=== PATIENT | male | born 1955 | race Caucasian/White ===

== ENCOUNTER → 2018-06-26 | Outpatient (CLI) | payer MEDICARE, OTHER ==
[2018-06-26 13:25] LABS: HCT 46.7 % (39.0-53.0); MCHC 32.2 g/dL (31.0-37.0); MCV 90.1 fL (80.0-100.0); Mean Platelet Volume 6.6; Platelet Count 326 k/uL (150-450); RBC 5.19 m/uL (4.30-5.90); RDW 14.3 % (11.5-15.5); WBC 9.6 k/uL (3.8-10.6)
[2018-06-26 13:36] LABS: D-Dimer <0.17 mg/L FEU (<0.60); INR 2.5 (<1.2); Prothrombin Time 22.4 sec (9.0-12.0)
[2018-06-26 13:40] LABS: Anion Gap 10 mmol/L; Blood Urea Nitrogen 22 mg/dL (9-20); Calcium 9.3 mg/dL (8.4-10.2); Carbon Dioxide 25 mmol/L (22-30); Chloride 107 mmol/L (98-107); Glucose 107 mg/dL (74-99); Potassium 5.2 mmol/L (3.5-5.1); Sodium 142 mmol/L (137-145)
== END ==
LOC: LABWHC1 12:30
PROVIDERS: ATTEND Radiology Diagnostic Radiology
DX: Z51.81 Encounter for therapeutic drug level monitoring (principal); Z79.01 Long term (current) use of anticoagulants; Z86.718 Personal history of other venous thrombosis and embolism
CPT/HCPCS: 36415; 80048; 85027; 85379; 85610; 86141

== ENCOUNTER → 2021-05-12 | Outpatient (CLI) | payer MEDICARE, OTHER ==
--- NOTE | 2021-05-12 11:22 | XR ---
EXAMINATION TYPE: XR chest 2V DATE OF EXAM: 05/12/2021 COMPARISON: 12/13/2014 TECHNIQUE: PA and lateral views submitted. HISTORY: Cough FINDINGS: No pneumothorax or pleural effusion. Subsegmental changes in the right lower lobe.. Hyperinflation n oted. Hypertrophic and degenerative change of the spine. No overt failure. Biapical pleural thickenin g. Arthropathy of the right shoulder. IMPRESSION: 1. Right basilar atelectasis versus early infiltrate. Correlate clinically.
== END | disposition home or self-care (01) ==
LOC: RADXRYALE 10:22
PROVIDERS: ATTEND Internal Medicine
DX: R05 Cough (principal)
CPT/HCPCS: 71046

== ENCOUNTER 2022-06-17 07:59 | Emergency (ER) | payer MEDICARE, OTHER ==
[2022-06-17 08:04] VITALS: TEMP 98
[2022-06-17] MEDS ORDERED: SODIUM CHLORIDE 0.9% 500 ML 500 ML IV STA (08:31)
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
[2022-06-17 09:49] LABS: Basophils % (A) 0 %; Eosinophils # (A) 0.1 k/uL (0-0.7); Eosinophils % (A) 1 %; HCT 49.5 % (39.0-53.0); HGB 15.9 gm/dL (13.0-17.5); Lymphocytes # (A) 0.2 k/uL (1.0-4.8); Lymphocytes % (A) 2 %; MCHC 32.2 g/dL (31.0-37.0); MCV 93.1 fL (80.0-100.0); Mean Platelet Volume 7.1; Monocytes # (A) 0.7 k/uL (0-1.0); Monocytes % (A) 5 %; Neutrophils # (A) 12.9 k/uL (1.3-7.7); Neutrophils % (A) 92 %; Platelet Count 310 k/uL (150-450); RBC 5.32 m/uL (4.30-5.90); RDW 14.3 % (11.5-15.5)
[2022-06-17 10:00] LABS: Albumin 4.7 g/dL (3.5-5.0); Calcium 9.4 mg/dL (8.4-10.2); Potassium 4.6 mmol/L (3.5-5.1); Total Bilirubin 2.5 mg/dL (0.2-1.3); Total Protein 7.7 g/dL (6.3-8.2)
[2022-06-17 10:48] LABS: Appearance,Urine Clear (Clear); Bilirubin,Urine Negative (Negative); Blood,Urine Negative (Negative); Color,Urine Yellow; Glucose,Urine (UA) 4+ (Negative); Ketones,Urine Negative (Negative); Leukocyte Esterase,Urine Negative (Negative); Nitrite,Urine Negative (Negative); PH, Urine 7.5 (5.0-8.0); Protein,Urine Negative (Negative); Specific Gravity,Urine 1.029 (1.001-1.035)
[2022-06-17 11:07] VITALS: RESP 18
--- NOTE | 2022-06-17 11:36 | US ---
EXAMINATION TYPE: US gallbladder DATE OF EXAM: 06/17/2022 COMPARISON: CT 06/17/2022 CLINICAL HISTORY: pain. TECHNIQUE: Multiple sonographic images of the right upper quadrant are obtained. FINDINGS: EXAM MEASUREMENTS: Liver Length: 16.5 cm Gallbladder Wall: 0.3 cm CBD: 0.4 cm Right Kidney: 11.7 x 5.1 x 5.4 cm VINYL INSTALLER NOTES:Technically difficult study due to body habitus and overlying bowel gas. Pancreas: Obscured by bowel gas Liver: limited visualization to intercostal window, visualized portions wnl increased echogenicity. Gallbladder: No stones seen Evidence for sonographic Castro's sign: No CBD: wnl Right Kidney: No hydronephrosis or masses seen IMPRESSION: 1. No evidence for acute process. 2. Hepatocellular disease commonly relating to hepatic steatosis.
--- NOTE | 2022-06-17 11:36 | CT ---
EXAMINATION TYPE: CT abdomen pelvis w con CT DLP: 2210.2 mGycm, Automated exposure control for dose reduction was used. DATE OF EXAM: 06/17/2022 10:50 AM COMPARISON: None CLINICAL INDICATION:Male, 66 years old with history of abdominal pain TECHNIQUE: Axial CT of the abdomen and pelvis. Sagittal and coronal reformats were created on a [employer] workstation. Contrast used:100 ml mL of Isovue 300 with IV Contrast, Oral contrast used: without Oral Contrast FINDINGS: LOWER CHEST: Unremarkable ABDOMEN LIVER: Unremarkable GALLBLADDER AND BILE DUCTS: Unremarkable. PANCREAS: Unremarkable. SPLEEN: Small splenule is present. ADRENAL GLANDS: Unremarkable. KIDNEYS AND URETERS: No evidence of hydronephrosis or renal calculus. The ureters are unremarkable. PELVIS BLADDER: Nondistended and incompletely evaluated. REPRODUCTIVE: Unremarkable. ABDOMEN & PELVIS STOMACH AND BOWEL: Second portion duodenal diverticulum. No evidence of bowel obstruction. PERITONEUM: No evidence of pneumoperitoneum or free fluid. VASCULATURE: No evidence of aortic aneurysm. Left common iliac vein stent. MUSCULOSKELETAL: No acute osseous abnormalities, multilevel disc degeneration changes throughout the spine. LYMPH NODES: No gross evidence for lymphadenopathy. SOFT TISSUE/ABDOMINAL WALL: Fat-containing umbilical hernia. Left fat filled inguinal hernia. IMPRESSION: No evidence for acute intra-abdominal process to explain the patient's pain.
[2022-06-17 13:42] VITALS: BP 118/72; PULSE 110
[2022-06-17 17:17] LABS: Hepatitis A Antibody IgM Nonreactive (Nonreactive); Hepatitis B Core IgM Nonreactive (Nonreactive); Hepatitis B Surface Antigen Nonreactive (Nonreactive); Hepatitis C IgG Antibody Nonreactive (Nonreactive)
== END 2022-06-17 13:43 | disposition home or self-care (01) ==
LOC: EC 07:59
DX: R10.9 Unspecified abdominal pain (principal); R74.01 Elevation of levels of liver transaminase levels; I10 Essential (primary) hypertension; E78.5 Hyperlipidemia, unspecified; Z79.899 Other long term (current) drug therapy; Z88.0 Allergy status to penicillin
CPT/HCPCS: 36415; 93005; 80053; 80074; 82150; 83605; 83690; 84484; 85025; 81003; 76705; 74177; 99284; Q9967